=== PATIENT | male | born 1995 | race Caucasian/White ===

== ENCOUNTER 2023-01-03 13:39 | Emergency (ER) | payer BC, OTHER, SELFPAY ==
[2023-01-03 13:52] VITALS: BP 151/74; PULSE 71; RESP 16; TEMP 36.9; O2SAT 98
--- NOTE | 2023-01-03 15:03 | ED.DENTAL ---
HPI - Dental/Oral General Chief complaint: Dental/Oral Stated complaint: tooth pain Time Seen by Provider: 01/03/23 15:03 Source: patient, RN notes reviewed and old records reviewed Mode of arrival: ambulatory Limitations: no limitations History of Present Illness HPI Narrative: 27 year old male presents to [facility] care with complaints of left lower most posterior molar dental pain for the past 3-4 days with increasing discomfort. Patient reports that he has been taking Ibuprofen for his discomfort.Patient denies any facial swelling or any difficulty swallowing or with his breathing, denies any fevers, chills or sweats. MD Complaint: tooth pain Location: Tooth # (17) Onset (ago): day(s) (3-4 day with increase) Severity scale (1-10): 5 Exacerbating factors: chewing Treatment prior to arrival: other (Ibuprofen) Related Data Home Medications Medication Instructions Recorded Confirmed buspirone 10 mg tablet 10 mg PO BID 01/03/23 01/03/23 fluoxetine 20 mg capsule 20 mg PO DAILY 01/03/23 01/03/23 lisinopril 20 mg tablet 20 mg PO DAILY 01/03/23 01/03/23 Allergies Allergy/AdvReac Type Severity Reaction Status Date / Time No Known Allergies Allergy Verified 01/03/23 14:37 Review of Systems Review of Systems: CONSTITUTIONAL: Denies fever, chills, or sweats. ENT: Denies rhinorrhea, congestion, sore throat, or otalgia. Reports dental pain to #17 tooth which appears to be impacted wisdom tooth. CARDIOVASCULAR: Denies chest pain, palpitations, or edema. RESPIRATORY: Denies cough or dyspnea. SKIN: Denies rash or itching. MUSCULOSKELETAL: Denies myalgia. NEUROLOGIC: Denies headache All systems reviewed & are unremarkable except as noted in HPI and below PMFSH Past Medical History Medical History (Updated 01/04/23 @ 20:49 by Nguyen Zabala NP) Anxiety and depression Hypertension Social History Social History (Updated 01/04/23 @ 20:48 by Nguyen Zabala NP) Smoking status: Never smoker Alcohol intake: current Alcohol use details: social Substance use type: does not use Living arrangements: with family Gender identity (if verbalized by the patient): Male Comments At time of signature, agree with nursing past medical, surgical, social and family history. There is no relevant family history pertinent to the presenting complaint Exam Narrative: GENERAL: Well-appearing, well-nourished, and in no acute distress. HEAD: Normocephalic, atraumatic. EYES: PERRLA and EOMI. ENT: Nares clear, no rhinorrhea or epistaxis. Mucous membranes moist.Impacted left lower wisdom tooth with redness and swelling of gum around tooth, no trismus noted NECK: Supple. no lymphadenopathy CHEST: Clear to auscultation. No respiratory distress.SAO2 98% on room air HEART: Regular rate and rhythm. No murmur heard. Normal peripheral pulses. SKIN: Warm, dry, no rash. NEURO: No focal deficits. Alert and oriented x3. Course Course Emergency Course: Patient is aware of diagnosis, understands and agrees to treatment plan. Anticipatory guidance given. Patient agrees to follow-up as directed and is aware of reasons to seek care at the emergency department. Portions of this record may have been created with voice recognition software Level of Care: Express Care Visit Vital Signs Vital signs: Vital Signs Temperature 36.9 C 01/03/23 13:52 Pulse Rate 71 01/03/23 13:52 Respiratory Rate 16 01/03/23 13:52 Blood Pressure 151/74 H 01/03/23 13:52 Pulse Oximetry 98 01/03/23 13:52 Oxygen Delivery Room Air 01/03/23 13:52 Temperature 36.9 C 01/03/23 13:52 Pulse Rate 71 01/03/23 13:52 Respiratory Rate 16 01/03/23 13:52 Blood Pressure 151/74 H 01/03/23 13:52 Pulse Oximetry 98 01/03/23 13:52 Oxygen Delivery Room Air 01/03/23 13:52 Reviewed MDM - Dental/Oral MDM Narrative Medical decision making narrative: Patients pain and complaint coupled with physical findings are consistent with dent
== END 2023-01-03 15:30 | disposition home or self-care (01) ==
PROVIDERS: Emergency Provider Registered Nurse
DX: K08.89 Other specified disorders of teeth and supporting structures (principal); F41.9 Anxiety disorder, unspecified; F32.A Depression, unspecified; I10 Essential (primary) hypertension
CPT/HCPCS: 99213; G0463